=== PATIENT | female | born 1985 | race Caucasian/White ===

== ENCOUNTER → 2021-01-22 | Outpatient (CLI) | payer BC, MEDICAID ==
[~2021-01-22] MED LIST: AMOXICILLIN 8751 TAB PO; IBU-8800 MG PO; MIRENA52 MG IU; MOTRIN 800800 MG/TAB PO; PERCOCET 325 MG1 TA2 PO; PRENATAL PO; PRENATAL TABLET PO; PRENATAL1 TA1 PO; VOLTAREN-XR100 MG PO
== END ==
LOC: ZCOL.LAB 08:00
DX: Z20.822 Contact with and (suspected) exposure to COVID-19 (principal)

== ENCOUNTER 2021-01-25 06:46 | Inpatient (IN) | payer BC, MEDICAID ==
[2021-01-25] VITALS (20 sets, daily range): BP systolic 87–110; BP diastolic 54–76; PULSE 57–98; TEMP 97.3–98.3
[~2021-01-25] VITALS: Ht 165.2 cm; Wt 91.8 kg
[~2021-01-25 06:46] MED LIST changes: -MOTRIN 800800 MG/TAB PO; -PRENATAL TABLET PO
--- NOTE | 2021-01-25 09:15 | NUR ---
0915- Pt arrives on unit ambulatory for scheduled repeat section with [facility] LUCIA. Pt oriented to room, into bathroom to change into gown. 09- Pt into bed, EFM and TOCO on and tracing. VSS. IV start and labs obtained without difficulty, Pt tolerated well. Assessment completed. 1000- EFM and TOCO off. Plan of care discussed, Pt denies questions at this time. Call light within reach.
[2021-01-25 09:52] LABS: BASO % 0.3 % (0.0-2.0); EOS # 0.1 (0.0-0.7); EOS % 0.4 % (0-4.0); GRAN # 9.3 (1.4-6.5); HEMATOCRIT 36.6 % (37.0-47.0); HEMOGLOBIN 12.1 g/dl (12.5-16.0); LYMPH # 1.8 (1.2-3.4); LYMPH % 14.5 % (20.0-51.0); MEAN CELL VOLUME 94 fl (80.0-100.0); MEAN CORPUSCULAR HEMOGLOBIN 31 pg (27.0-31.0); MEAN CORPUSCULAR HGB CONC 33 g/dl (33.0-37.0); MEAN PLATELET VOLUME 10.8 fl (7.4-10.4); MONO # 1.1 (0.1-0.6); MONO % 8.4 % (1.7-9.3); PLATELET COUNT 257 K/mm3 (130-400); RED BLOOD COUNT 3.91 M/mm3 (4.10-5.30); REDCELL DISTRIBUTION WIDTH-CV 13.5 % (11.5-14.5)
[2021-01-25] MEDS ORDERED: PRENATAL TABLET PO (09:54)
[2021-01-25] MEDS ORDERED: MOTRIN 800800 MG/TAB PO (11:47)
[2021-01-25] MEDS ORDERED: PERCOCET 325 MG1 TA2 PO (11:48)
[2021-01-26 08:45] VITALS: BP 98/58; PULSE 76; TEMP 98.2
[2021-01-26 16:30] VITALS: BP 97/59; PULSE 69; TEMP 98
[2021-01-26 20:15] VITALS: BP 102/60; PULSE 66; TEMP 97.8
[2021-01-27 02:00] VITALS: BP 99/57; PULSE 73; TEMP 97.8
[2021-01-27 07:10] VITALS: BP 93/60; PULSE 66; TEMP 97.8
== END 2021-01-27 10:40 | disposition home or self-care (01) | DRG 788 ==
LOC: OB 06:46
PROVIDERS: ADMIT Obstetrics & Gynecology
PROC: 10D00Z1 Extraction of Products of Conception, Low, Open Approach (ICD-10-PCS; principal; 2021-01-25)
DX: O34.211 Maternal care for low transverse scar from previous cesarean delivery (principal); Z37.0 Single live birth; O69.81X0 Labor and delivery complicated by cord around neck, without compression, not applicable or unspecified; Z3A.39 39 weeks gestation of pregnancy; Z87.891 Personal history of nicotine dependence
CPT/HCPCS: J0690; J1885; J2405; J2590; J7120